=== PATIENT | female | born 1965 | race Caucasian/White ===

== ENCOUNTER → 2019-05-03 10:51 | Outpatient (CLI) | payer MEDICARE ==
[~2019-05-03 10:51] MED LIST: FLUTICASONE PRO16 GM NASAL; LEVOTHYROXINE125 MCG PO; TESSALON PERLE100 MG PO; VALIUM5 MG PO; ZYRTEC10 MG PO
[2019-07-05 06:50] VITALS: BMI 27.8
== END | disposition home or self-care (01) ==
LOC: D.RAD 10:51
PROVIDERS: ATTEND Nurse Practitioner Family
DX: M25.421 Effusion, right elbow (principal)

== ENCOUNTER → 2019-06-07 12:32 | Outpatient (CLI) | payer MEDICARE ==
[2019-07-05 06:50] VITALS: BMI 27.8
== END | disposition home or self-care (01) ==
LOC: D.MRI 06-04 14:30
PROVIDERS: ATTEND Orthopaedic Surgery
DX: M25.521 Pain in right elbow (principal)

== ENCOUNTER 2019-07-05 06:13 | Day surgery (SDC) | payer MEDICARE ==
[2019-07-02 14:17] LABS: BASOPHILS 0.3 % (0-2); EOSINOPHILS 1.1 % (0-7); HEMATOCRIT 47.5 % (36.0-48.0); HEMOGLOBIN 15.9 g/dL (12-16); IMMATURE GRANULOCYTES 0.3 % (0-5); LYMPHOCYTES 31.7 % (15-50); MCH 32.9 pg (26.0-34.0); MCHC 33.5 g/dL (31.0-37.0); MCV 98.1 fL (80.0-100.0); MEAN PLATELET VOLUME 10.3 fL (7.4-10.4); MONOCYTES 5.5 % (2-11); NEUTROPHILS 61.1 % (40-80); PLATELET COUNT 337 10x3/uL (130-400); RBC 4.84 10x6/uL (4.00-5.40); RDW 14.1 % (11.5-14.5); WBC 15.5 10x3/uL (4.8-10.8)
[2019-07-02 14:26] LABS: APTT 30.8 SECONDS (22.8-39.4); INR 0.97 (0.85-1.17); PROTIME 12.4 SECONDS (11.6-15.0)
[2019-07-02 14:39] LABS: CALC OSMOLALITY 277 mosm/kg (275-300); CALCIUM 8.9 mg/dL (8.5-10.1); CARBON DIOXIDE 27.9 mmol/L (21.0-32.0); CHLORIDE - SERUM 105 mmol/L (98-107); CREATININE - SERUM 0.8 mg/dL (0.6-1.3); GLUCOSE 80 mg/dL (74-106); POTASSIUM - SERUM 4.1 mmol/L (3.5-5.1); SODIUM 139 mmol/L (136-145); UREA NITROGEN 14 mg/dL (7-18); eGFR NON AFRICAN AMERICAN 80 mL/min (90-120)
[~2019-07-05] VITALS: Ht 172.7 cm; Wt 83.0 kg
[2019-07-05 06:50] VITALS: BP 120/73; Ht 172.7 cm; Wt 83.0 kg
--- NOTE | 2019-07-05 11:02 | NUR ---
1000 PT STATES FINGERS ARE NUMB AND THAT SHE CANNOT WIGGLE DIGITS AT THIS TIME. GOOD PERFUSION TO HAND NOTED. SKIN PINK AND WARM. 1007 PT VOIDED WITHOUT DIFFICULTY. 1032 IV DC'D. CATHETER TIP INTACT. NO BLEEDING AT SITE. BANDAID APPLIED.
== END 2019-07-05 10:47 | disposition home or self-care (01) ==
LOC: D.OPS 06:13 → D.PAN 07:30 → D.OPS 08:00
PROVIDERS: Anesthesiology; ATTEND Orthopaedic Surgery
DX: M77.11 Lateral epicondylitis, right elbow (principal); S56.511A Strain of other extensor muscle, fascia and tendon at forearm level, right arm, initial encounter; E03.9 Hypothyroidism, unspecified; X50.9XXA Other and unspecified overexertion or strenuous movements or postures, initial encounter; Y93.9 Activity, unspecified; Y92.9 Unspecified place or not applicable

== ENCOUNTER 2020-04-03 14:47 | Emergency (ER) | payer MEDICARE ==
[~2020-04-03] VITALS: Ht 172.7 cm; Wt 77.3 kg
[2020-04-03 14:51] VITALS: Ht 172.7 cm; Wt 77.3 kg
[2020-04-03 15:46] VITALS: BP 116/77
== END 2020-04-03 15:48 | disposition home or self-care (01) ==
LOC: D.ER 14:47
DX: T78.04XA Anaphylactic reaction due to fruits and vegetables, initial encounter (principal); E03.9 Hypothyroidism, unspecified

== ENCOUNTER 2020-11-10 08:00 | Day surgery (SDC) | payer MEDICARE ==
[~2020-11-10] VITALS: Ht 175.3 cm; Wt 76.4 kg
[2020-11-10 08:17] LABS: BASOPHILS 0.6 % (0-2); EOSINOPHILS 1.2 % (0-7); HEMATOCRIT 46.8 % (36.0-48.0); HEMOGLOBIN 15.5 g/dL (12-16); IMMATURE GRANULOCYTES 0.2 % (0-5); LYMPHOCYTE ABS# 3.08 10x3/uL (1.18-3.74); LYMPHOCYTES 28.9 % (15-50); MCH 31.8 pg (26.0-34.0); MCHC 33.1 g/dL (31.0-37.0); MCV 96.1 fL (80.0-100.0); MEAN PLATELET VOLUME 10.4 fL (7.4-10.4); MONOCYTES 6.4 % (2-11); NEUTROPHIL ABS# 6.67 10x3/uL (1.56-6.13); NEUTROPHILS 62.7 % (40-80); PLATELET COUNT 289 10x3/uL (130-400); RBC 4.87 10x6/uL (4.00-5.40); RDW 13.5 % (11.5-14.5); WBC 10.6 10x3/uL (4.8-10.8)
[2020-11-10 08:27] LABS: CALC OSMOLALITY 276 mosm/kg (275-300); CALCIUM 9.2 mg/dL (8.5-10.1); CARBON DIOXIDE 27.4 mmol/L (21.0-32.0); CHLORIDE - SERUM 103 mmol/L (98-107); CREATININE - SERUM 0.8 mg/dL (0.6-1.3); GLUCOSE 113 mg/dL (74-106); POTASSIUM - SERUM 4.4 mmol/L (3.5-5.1); SODIUM 137 mmol/L (136-145); UREA NITROGEN 18 mg/dL (7-18); eGFR NON AFRICAN AMERICAN 80 mL/min (90-120)
[2020-11-10 08:40] LABS: APTT 29.9 SECONDS (22.8-39.4); INR 0.97 (0.85-1.17); PROTIME 11.9 SECONDS (11.6-15.0)
[2020-11-10 09:53] VITALS: BP 100/53; Ht 175.3 cm; Wt 76.4 kg
--- NOTE | 2020-11-10 12:45 | NUR ---
DC TEACHING TO PT AND SPOUSE. VERBALIZED UNDERSTANDING. 1310 PIV DC'D WITH CATHETER INTACT, SPOUSE HELPED PT TO DRESS. 1315 PT DC'D VIA WC BY EMILY WITH ALL BELONGINGS AND DC PACKET TO POV WITH SPOUSE DRIVING.
== END 2020-11-10 13:15 | disposition home or self-care (01) ==
LOC: D.SP 08:00 → D.CT 10:00 → D.SP 10:00
PROVIDERS: General Practice; ATTEND Internal Medicine Hematology & Oncology
DX: D72.829 Elevated white blood cell count, unspecified (principal)

== ENCOUNTER → 2021-01-15 10:54 | Outpatient (CLI) | payer MEDICARE ==
[2020-11-10 09:53] VITALS: BMI 24.8
[2021-01-17 06:11] LABS: IGG SUBCLASS 1 371 mg/dL (248-810); IGG SUBCLASS 2 230 mg/dL (130-555); IGG SUBCLASS 3 82 mg/dL (15-102); IGG SUBCLASS 4 50 mg/dL (2-96); IGGS - IGG SERUM 773 mg/dL (586-1602)
== END | disposition home or self-care (01) ==
LOC: D.LAB 08:00 → D.RT 11:00
PROVIDERS: ATTEND Internal Medicine Pulmonary Disease
DX: J44.9 Chronic obstructive pulmonary disease, unspecified (principal); J42 Unspecified chronic bronchitis; Z11.52 Encounter for screening for COVID-19